=== PATIENT | female | born 1965 | race Asian ===

== ENCOUNTER 2017-02-23 10:59 | Emergency (ER) | payer MEDICAID, OTHER ==
[~2017-02-23] VITALS: Ht 157.5 cm; Wt 59.0 kg
[2017-02-23 11:20] VITALS: BP 150/80
--- NOTE | 2017-02-23 13:17 | Emergency Room Report ---
History of Present Illness General Chief Complaint: Pain Source: Patient, Family Member Present Illness HPI Patient with L chest/rib pain after falling allegedly 4 days ago. Hit chair. No LOC. Pain is severe 7/10, constant, burning ache, worse with moving and breathing. No cough, fever, hemoptysis. Has not taken medicine. Unable to lift due to pain. Occasionally needs to lift at work. No NVD, extremity pain, headache. Denies medical problem or cardiac disease. Allergies: Coded Allergies: No Known Allergies (Unverified , 02/23/17) Patient History Limited by: language barrier - son translates (her understanding is good) Past Medical History: see triage record Social History: Denies: smoking Social History Narrative cashier payments received at restaurant Last Menstrual Period: N/A Reviewed Nursing Documentation: PMH: Agreed, PSxH: Agreed Nursing Documentation-PMH Past Medical History: No Stated History Review of Systems All Other Systems: negative except mentioned in HPI Physical Exam Vital Signs Date Time Temp Pulse Resp B/P Pulse Ox O2 Delivery O2 Flow Rate FiO2 02/23/17 11:08 98.2 53 18 150/80 98 Room Air Sp02 EP Interpretation: reviewed, normal General Appearance: well appearing, no apparent distress Head: normocephalic, atraumatic Eyes: bilateral eye PERRL, bilateral eye normal inspection ENT: hearing grossly normal, normal voice Neck: full range of motion, supple, no bony tend Respiratory: no respiratory distress, speaking full sentences, other - L chest wall tenderness, not point, no crepetance Cardiovascular #1: regular rate, rhythm Cardiovascular #2: 2+ radial (L) Gastrointestinal: non tender, soft Musculoskeletal: back normal, digits/nails normal, gait/station normal, normal range of motion, pelvis stable Neurologic: alert, oriented x3, normal gait, grossly normal Psychiatric: mood/affect normal Skin: no rash Medical Decision Making Diagnostic Impression: Primary Impression: Chest wall contusion Qualified Codes: S20.212A - Contusion of left front wall of thorax, initial encounter ER Course Patient 4 days post fall and hitting chest. Ddx: fractures, pneumothorax, contusion amongst others. Need also to exclude cardiac cause. EKG and xrays ordered. Analgesia also ordered. No evidence of pneumonia. Xrays with no fx. Scoliosis and some R interstitial prom. Improved with analgesia - though still has pain. Discussed expected course. Patient stable for outpatient observation and treatment. EKG Diagnostic Results Rate: normal Rhythm: NSR ST Segments: no acute changes Rhythm Strip Diag. Results EP Interpretation: yes Rhythm: NSR, no PVC's, no ectopy, other - from EKG Chest X-Ray Diagnostic Results Chest X-Ray Ordered: Yes # of Views/Limited/Complete: 1 View Interpretation: no consolidation, no effusion, no pneumothorax, other - scoleosis and interstitial prominence Indication: Other Impression: No acute disease Date Electronically Signed: Feb 23, 2017 Time Electronically Signed: 12:00 Interpreting ER Physician: cristina Other X-Ray Diagnostic Results X-Ray ordered: ribs # of Views/Limited Vs Complete: 3 View Interpretation: no fractures, no dislocation, no soft tissue swelling Indication: Pain Impression: No acute disease Date Electronically Signed: Feb 23, 2017 Time Electronically Signed: 12:00 Interpreting ER Physician: cristina Last Vital Signs Date Time Temp Pulse Resp B/P Pulse Ox O2 Delivery O2 Flow Rate FiO2 02/23/17 13:59 98.2 61 18 147/80 99 Room Air Status: improved Disposition: HOME, SELF-CARE Condition: Improved Scripts Tramadol Hcl* (ULTRAM*) 50 Mg Tablet 50 MG ORAL Q6H Y for For Pain, #10 TAB 0 Refills Prov: Alexander Chase M.D. 02/23/17 Ibuprofen* (MOTRIN*) 600 Mg Tablet 600 MG ORAL Q6H Y for For Pain, #16 TAB Prov: Alexander Chase M.D. 02/23/17 Referrals: [facility]ERR[facility] (PCP) Alexander Chase M.D. Feb 23, 2017 13:17
[2017-02-23] MEDS ORDERED: IBUPROFEN600 MG ORAL (13:20)
[2017-02-23] MEDS ORDERED: TRAMADOL HCL50 MG ORAL (13:20)
[2017-02-23 13:55] VITALS: BP 147/80
[2017-02-23 13:59] VITALS: BP 147/80
--- NOTE | 2017-02-24 07:49 | Diagnostic Imaging Report ---
Indication: TRAUMA Technique: One view of the chest Comparison: 11/15/2009 Findings: There is mild central interstitial disease which may represent bronchitis changes. Lungs and pleural spaces otherwise clear. Heart size is upper limits normal. Impression: Central interstitial prominence, may reflect bronchitis changes. No definite acute process
--- NOTE | 2017-02-24 16:38 | Cardiology Report ---
APPROVED REPORT EKG Measurement Heart [id number] CT [id number] [id number] Sinus bradycardia RSR' or QR pattern in V1 suggests right ventricular conduction delay Borderline ECG
== END 2017-02-23 14:00 | disposition home or self-care (01) ==
LOC: EMR 12:13
DX: S20.212A Contusion of left front wall of thorax, initial encounter (principal); W19.XXXA Unspecified fall, initial encounter; Y92.89 Other specified places as the place of occurrence of the external cause
CPT/HCPCS: 93005; 99284

== ENCOUNTER 2017-11-13 08:52 | Emergency (ER) | payer OTHER ==
[~2017-11-13] VITALS: Ht 157.5 cm; Wt 57.2 kg
[~2017-11-13 08:52] MED LIST: IBUPROFEN600 MG ORAL; TRAMADOL HCL50 MG ORAL
[2017-11-13 09:17] VITALS: BP 139/76
[2017-11-13 10:00] VITALS: BP 142/77
[2017-11-13] MEDS ORDERED: Ketorolac 30mg Inj IV ONE (10:00)
[2017-11-13 10:22] LABS: BASOPHILS % (AUTO) 1.2 % (0.0-2.0); EOSINOPHILS % (AUTO) 1.3 % (0.0-3.0); HEMATOCRIT 37.9 % (37.0-47.0); HEMOGLOBIN 12.8 G/DL (12.0-16.0); LYMPHOCYTES % (AUTO) 22.4 % (20.0-45.0); MEAN CORPUSCULAR VOLUME 88 FL (80-99); MONOCYTES % (AUTO) 6.1 % (1.0-10.0); PLATELET COUNT 254 K/UL (150-450); RED CELL DISTRIBUTION WIDTH 12.2 % (11.6-14.8); WHITE BLOOD COUNT 7.5 K/UL (4.8-10.8)
[2017-11-13 10:26] LABS: ANION GAP 5 mmol/L (5-15); BLOOD UREA NITROGEN 17 mg/dL (7-18); CALCIUM 9.1 MG/DL (8.5-10.1); CARBON DIOXIDE 31 MMOL/L (21-32); CHLORIDE 105 MMOL/L (98-107); CREATININE 0.6 MG/DL (0.55-1.30); POTASSIUM 4.5 MMOL/L (3.5-5.1); SODIUM 141 MMOL/L (136-145)
[2017-11-13 10:31] LABS: ALANINE AMINOTRANSFERASE 41 U/L (12-78); ALBUMIN 3.7 G/DL (3.4-5.0); ALBUMIN/GLOBULIN RATIO 0.9 (1.0-2.7); ALKALINE PHOSPHATASE 102 U/L (46-116); ASPARTATE AMINO TRANSFERASE 29 U/L (15-37); BILIRUBIN,TOTAL 0.3 MG/DL (0.2-1.0)
--- NOTE | 2017-11-13 10:45 | Diagnostic Imaging Report ---
Indication: Chest pain Technique: XRAY Chest 1v Comparison: None Findings: Cardiomediastinal silhouette is stable. Mild linear and hazy opacities are seen in the left base. There is no pneumothorax or pleural effusion. Osseous structures are stable. Impression: Mild linear and hazy opacities in the left base could represent atelectasis but subtle infiltrate not excluded. Clinical correlation/follow-up recommended.
[2017-11-13 11:00] VITALS: BP 129/74
[2017-11-13 11:04] VITALS: BP 142/77
[2017-11-13 12:00] VITALS: BP 129/71
--- NOTE | 2017-11-13 12:48 | Emergency Room Report ---
History of Present Illness General Chief Complaint: Chest Pain Source: Patient Present Illness HPI 52-year-old female presents with right chest pain deep to her breast for the past 2 weeks She was seen by her primary doctor and given analgesics with only partial relief She went back to that doctor who then changed her vacation to gabapentin, but she still reports pain She has no other symptoms such as cough, shortness of breath, fevers, leg pain, leg swelling, recent travel, syncope, nausea, diaphoresis She reports the pain is worse whenever she moves around or presses on her chest wall She is concerned she may have breast cancer despite normal recent mammogram Allergies: Coded Allergies: No Known Allergies (Unverified , 02/23/17) Patient History Past Medical History: see triage record Reviewed Nursing Documentation: PMH: Agreed, PSxH: Agreed Nursing Documentation-PMH Past Medical History: No Stated History Hx Gastrointestinal Problems: Yes - gerd Review of Systems All Other Systems: negative except mentioned in HPI Physical Exam Vital Signs Date Time Temp Pulse Resp B/P (MAP) Pulse Ox O2 Delivery O2 Flow Rate FiO2 11/13/17 09:02 97.8 61 18 153/92 97 Room Air 97.9 Sp02 EP Interpretation: reviewed, normal General Appearance: no apparent distress, alert, non-toxic Head: normocephalic Eyes: bilateral eye normal inspection, bilateral eye PERRL, bilateral eye EOMI ENT: normal ENT inspection, hearing grossly normal, normal pharynx, no angioedema, normal voice, moist mucus membranes Neck: normal inspection, full range of motion, supple, supple/symm/no masses Respiratory: chest non-tender, lungs clear, normal breath sounds, chest symmetrical, palpation of chest normal Cardiovascular #1: normal peripheral pulses, regular rate, rhythm, no edema, no JVD, other - Positive right-sided superior chest wall tenderness, no breast changes Cardiovascular #2: 2+ radial (R), 2+ radial (L), 2+ dorsalis pedis (R), 2+ dorsalis pedis (L) Gastrointestinal: normal inspection, non tender, soft, no mass, no guarding, no rebound Rectal: deferred Genitourinary: normal inspection, no CVA tenderness Musculoskeletal: back normal, gait/station normal, normal range of motion, non- tender, no calf tenderness Neurologic: alert, responsive, 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, motor strength/tone normal, sensory intact, speech normal Psychiatric: judgement/insight normal, memory normal, mood/affect normal, no suicidal/homicidal ideation Skin: normal color, no rash, warm/dry, normal turgor Lymphatic: no adenopathy Medical Decision Making Diagnostic Impression: Primary Impression: Chest pain ER Course Patient with normal basic labs including d-dimer Normal chest x-ray Pain somewhat improved Toradol but still somewhat present We will give prescription for ibuprofen and have patient follow up She already has an up with her primary doctor again this week, I recommend she continue monitoring her condition as an outpatient Patient understands and agrees, she is more concerned about the possibility of breast cancer, I reassured her that her primary doctor could order for studies if necessary Rhythm Strip Diag. Results Rhythm Strip Time: 12:47 EP Interpretation: yes Rate: 56 Rhythm: NSR, no PVC's, no ectopy Chest X-Ray Diagnostic Results Chest X-Ray Diagnostic Results : Chest X-Ray Ordered: Yes # of Views/Limited/Complete: 1 View Indication: Chest Pain EP Interpretation: Yes PA Xray: Interpretation reviewed Interpretation: no consolidation, no effusion, no pneumothorax, other - Atelectasis left base Impression: No acute disease Electronically Signed by: Elidia Molina MD Last Vital Signs Date Time Temp Pulse Resp B/P (MAP) Pulse Ox O2 Delivery O2 Flow Rate FiO2 11/13/17 12:00 55 17 129/71 98 Room Air 11/13/17 11:01 97.9 Status: improved Condition: Stable Referrals: [facility]ERR[facility] (PCP) ELIDIA MOLINA M.D Nov 13, 2017 12:48
[2017-11-13] MEDS ORDERED: CYCLOBENZAPRINE10 MG ORAL (12:50)
[2017-11-13 12:57] VITALS: BP 129/71
--- NOTE | 2017-11-14 16:27 | Cardiology Report ---
APPROVED REPORT EKG Measurement Heart [id number] [place] 192P52 [id number] Sinus bradycardia RSR' or QR pattern in V1 suggests right ventricular conduction delay Borderline ECG
== END 2017-11-13 13:08 | disposition home or self-care (01) ==
LOC: EMR 09:10
DX: R07.89 Other chest pain (principal)
CPT/HCPCS: 36415; 71045; 80053; 84484; 85025; 85379; 93005; 96374; 99284; J1885